=== PATIENT | female | born 1950 | race Caucasian/White ===

== ENCOUNTER 2020-10-26 07:37 | Outpatient (CLI) | payer MEDICARE, SELFPAY ==
--- NOTE | ~2020-10-26 | MM_ITS ---
EXAMINATION: MM screening dilan BI w brigitte HISTORY: Screening TECHNIQUE: Craniocaudal and mediolateral oblique 3-D tomosynthesis images were obtained and synthetic 2-D images were generated. CAD analysis was submitted and interpreted. COMPARISON: 01/08/2017 BREAST PARENCHYMAL COMPOSITION: There are scattered areas of fibroglandular density. FINDINGS: Focal architectural distortion subareolar location of the right breast on CC view. This is not appreciated on MLO view.. Focal asymmetry in the left subareolar location is also unchanged. Ther e are scattered benign calcifications. No new masses, calcifications or architectural distortion are identified. IMPRESSION: 1. Focal architectural distortion subareolar location of the right breast, definitely seen on CC view only. 2. Additional mammographic views and possible breast ultrasound are recommended. BI-RADS Category 0: Incomplete: Needs additional imaging evaluation. Reviewed, dictated and finalized at location A. IMPRESSION: 1. Focal architectural distortion subareolar location of the right breast, defi nitely seen on CC view only. 2. Additional mammographic views and possible breast ultrasound are recommended . BI-RADS Category 0: Incomplete: Needs additional imaging evaluation.
== END 2020-10-26 07:38 | disposition home or self-care (01) ==
LOC: CHSIMG 07:40
PROVIDERS: PCP Family Medicine; Visit Provider Family Medicine
DX: Z12.31 Encounter for screening mammogram for malignant neoplasm of breast (principal)
CPT/HCPCS: 77063; 77067

== ENCOUNTER 2020-11-06 09:36 | Outpatient (CLI) | payer MEDICARE, SELFPAY ==
--- NOTE | ~2020-11-06 | MMUS_ITS ---
EXAMINATION: MM diagnostic dilan RT w brigitte, US breast RT limited HISTORY: Follow-up architectural distortion of the right breast TECHNIQUE: Additional 3-D tomosynthesis images of the right breast were performed and synthetic 2-D i mages were generated. CAD analysis was submitted and interpreted. High resolution Limited right breas t ultrasound was performed. COMPARISON: Comparison to multiple prior studies sequentially, with oldest reviewed study dated 12/12. BREAST PARENCHYMAL COMPOSITION: Breast composed of scattered areas of fibroglandular density. FINDINGS: MAMMOGRAPHIC FINDINGS: There is a spiculated mass in the upper central aspect of the right breast anteriorly. There are scat tered benign-appearing calcifications. ULTRASOUND: Limited right breast ultrasound: At 3:00, 5 cm from the nipple, there is an oval circumscribed hypoec hoic mass with posterior shadowing measuring 5 mm, likely benign. At 2:00, 5 cm from the nipple, ther e is a 4 mm cyst. At 1:00, 5 cm from the nipple, there is an irregular shaped hypoechoic mass measuri ng 9 mm corresponding to the spiculated mass seen on mammography. There is posterior shadowing with n o significant internal vascularity. There is an adjacent calcification with posterior shadowing. At 1 2:00, 7 cm from the nipple, there is a 3 mm cyst. IMPRESSION: 1. Irregular shaped 9 mm mass at 1:00, 5 cm from the nipple corresponding to the mammographic finding . 2. Ultrasound-guided right breast biopsy recommended. BI-RADS category 5, highly suggestive of malignancy. Reviewed, dictated and finalized at location A. IMPRESSION: 1. Irregular shaped 9 mm mass at 1:00, 5 cm from the nipple corresponding to th e mammographic finding. 2. Ultrasound-guided right breast biopsy recommended. BI-RADS category 5, highly suggestive of malignancy.
== END 2020-11-06 09:37 | disposition home or self-care (01) ==
PROVIDERS: PCP Family Medicine; Visit Provider Family Medicine
DX: R92.8 Other abnormal and inconclusive findings on diagnostic imaging of breast (principal)
CPT/HCPCS: 76642; 77061; 77065; G0279

== ENCOUNTER 2020-11-28 12:26 | Outpatient (CLI) | payer MEDICARE, SELFPAY ==
--- NOTE | ~2020-11-28 | MM_ITS ---
EXAMINATION: MM post biopsy diagnostic RT HISTORY: Post ultrasound-guided biopsy mammogram TECHNIQUE: ML and cc views following ultrasound-guided biopsy at 1:00 breast mass . COMPARISON: None FINDINGS: A ribbon biopsy marker is present adjacent to a spiculated mass in the upper inner quadrant of the right breast approximately 1:00. IMPRESSION: Ultrasound-guided biopsy marker at spiculated mass at 1:00 BI-RADS category 4, suspicious findings. Reviewed, dictated and finalized at location A.
--- NOTE | ~2020-11-28 | US_ITS ---
EXAMINATION: US GUIDED NEEDLE BIOPSY DATE: 11/28/2020 14:15 CDT INDICATION: Irregular spiculated shadowing breast mass at 1:00 5 cm from nipple TECHNIQUE AND FINDINGS: The risks and potential benefits of the procedure were discussed with the patient, and written inform ed consent was obtained. Timeout procedure was performed. After sterile preparation of the right theo st, 1% lidocaine was utilized for local anesthesia. A 14G spring-loaded biopsy gun needle was advanced to the edge of the region of interest from a media l approach utilizing sonographic guidance. A total of three tissue core samples were obtained throug h the lesion. An Inrad tissue marker clip was then placed at the biopsy site. Hemostasis was achieve d. A sterile bandage was applied. The patient tolerated procedure well and there was no evidence of immediate complication. The patien t was given verbal instructions prior to departing from the department. A two view mammogram was perf ormed to document tissue marker clip placement. The tissue samples were submitted to surgical patholo gy for histologic analysis. IMPRESSION: 1. Successful ultrasound guided biopsy of right 1:00 breast mass with biopsy marker placement. Thompson ny refer to pathology report for histologic analysis. Reviewed, dictated and finalized at Location A. Reviewed, dictated and finalized at location A. IMPRESSION: 1. Successful ultrasound guided biopsy of right 1:00 breast mass with biopsy m arker placement. Please refer to pathology report for histologic analysis.
== END 2020-11-28 12:27 | disposition home or self-care (01) ==
LOC: CHSIMG 12:27
PROVIDERS: PCP Family Medicine; Visit Provider Family Medicine
DX: C50.211 Malignant neoplasm of upper-inner quadrant of right female breast (principal); Z17.0 Estrogen receptor positive status [ER+]
CPT/HCPCS: 19083; 77065; 88305; 88342; A4648

== ENCOUNTER 2020-12-25 07:16 | Outpatient (CLI) | payer MEDICARE, SELFPAY ==
--- NOTE | ~2020-12-25 | MR_ITS ---
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 There is a 1.4 x 0.9 x 1.2 cm irre gular mass with irregular margins in the anterior third of the upper inner quadrant of the breast at the 1:00 location approximately 6.5 cm from the nipple corresponding to the biopsy-proven cancer. The mass demonstrates rapid initial enhancement with plateau and the delayed phase. No pathologically en larged axillary or internal mammary lymph nodes are identified. LEFT BREAST: There is minimal background parenchymal enhancement. No abnormal enhancement is present after contrast administration. No pathologically enlarged axillary or internal mammary lymph nodes ar e identified. IMPRESSION: 1. Biopsy-proven right breast cancer without additional mass identified. BI-RADS category 6, known biopsy-proven malignancy. Reviewed, dictated and finalized at location A. [employer]
[2020-12-25 09:04] LABS: Estimated Glomerular Filt Rate 55
== END 2020-12-25 07:17 | disposition home or self-care (01) ==
PROVIDERS: PCP Family Medicine; Visit Provider Family Medicine
DX: C50.911 Malignant neoplasm of unspecified site of right female breast (principal)
CPT/HCPCS: 77049; A9577; C8908

== ENCOUNTER 2021-02-27 10:02 | Outpatient (CLI) | payer MEDICARE, SELFPAY ==
--- NOTE | ~2021-02-27 | DEXA_ITS ---
Bone Density Report Name: NE HERNANDEZ Age: 70 Sex: Female Ethnicity: White Date of : 1950 Indication: postmenopausal; screening for osteoporosis; height loss; cancer; hysterectomy; Referring Provider: FAISAL HOLDEN Study: Bone densitometry was performed. Exam Date: February 27, 2021 Accession number: [id number] Bone Density: Region BMD T-score Z-score Classification AP Spine(L1-L4) 1.127 0.7 2.8 Normal Femoral Neck (Left) 0.632 -2.0 -0.2 Osteopenia Total Hip (Left) 0.859 -0.7 0.8 Normal Femoral Neck (Right) 0.691 -1.4 0.3 Osteopenia Total Hip (Right) 0.828 -0.9 0.5 Normal Femoral Neck Mean 0.662 -1.7 0.1 Osteopenia Total Hip Mean 0.843 -0.8 0.6 Normal World Health Organization criteria for BMD impression classify patients as: Normal (T-score at or above -1.0), Osteopenia (T-score between -1.0 and -2.5), or Osteoporosis (T-score at or below -2.5). 10-year Fracture Risk(1): Major Osteoporotic Fracture 9.5% Hip Fracture 1.5% Reported Risk Factors: [place] (), Neck BMD=0.632, BMI=44.9 (1) FRAX(R) Version 3.08. Fracture probability calculated for an untreated patient. Fracture probability may be lower if the patient has received treatment. Clinical Information Provided by Patient: Has the following medical conditions: Cancer, Hysterectomy Patient maximum height was 70 Menopause Age: 61 No regular weight bearing exercise Drinks caffeinated beverages Onset of menses at age 12 Number of children 6 Impression: The patient has low bone mass, based on the Left Femoral Neck T-score. Discussion: BONE DENSITY IS LOW AT ONE OR MORE SKELETAL SITES. This patient's lowest T-score is low at one or more skeletal sites. It meets the World Health Organization's (WHO) criteria for ?low bone mass? (T-score between -1.0 and -2.5). The patient's 10-year risk of fracture as calculated by FRAX is less than the threshold where pharmacological therapy is recommended by the National Osteoporosis Foundation (NOF). However, all treatment decisions require clinical judgment and consideration of individual patient factors, including patient preferences, comorbidities, previous drug use, risk factors not captured in the FRAX model (e.g., frailty, falls, vitamin D deficiency, increased bone turnover, interval significant decline in bone density) and possible under or overestimation of fracture risk by FRAX. The patient should follow a healthful lifestyle (good nutrition with adequate calcium and vitamin D, and appropriate weight-bearing exercise). Follow-Up: Consider repeating this study in 2 to 3 years to reassess this patient's status, or sooner if there is some new clinical indication. Reported by: Dr. Rell Rader on 02/27/2021 10:46:00 AM.
== END 2021-02-27 10:03 | disposition home or self-care (01) ==
LOC: CHSIMG 10:03
PROVIDERS: PCP Family Medicine; Visit Provider Internal Medicine Hematology & Oncology
DX: Z78.0 Asymptomatic menopausal state (principal)
CPT/HCPCS: 77080

== ENCOUNTER 2021-03-15 11:07 | Outpatient (CLI) | payer MEDICARE, SELFPAY ==
[2021-03-15 12:34] LABS: Cholesterol 241 mg/dL (0-200); HDL Direct 38 mg/dL (40-60); LDL Cholesterol Calculated 164 mg/dL (<130); Triglycerides 195 mg/dL (0-150)
== END 2021-03-15 11:08 | disposition home or self-care (01) ==
PROVIDERS: Visit Provider Internal Medicine Hematology & Oncology
DX: C50.211 Malignant neoplasm of upper-inner quadrant of right female breast (principal); Z13.6 Encounter for screening for cardiovascular disorders
CPT/HCPCS: 36415; 80061

== ENCOUNTER 2021-06-17 09:46 | Emergency (ER) | payer MEDICARE, SELFPAY ==
[2021-06-17 10:00] VITALS: BP 109/91; PULSE 91; RESP 16; TEMP 36.1; O2SAT 100
[2021-06-17 10:11] LABS: Glucose Point of Care 423 mg/dl (65-105)
--- NOTE | 2021-06-17 10:12 | ED.FEMALEGU ---
HPI - Female Genitourinary General Chief complaint: Urogenital-Female Stated complaint: groin injury/hip pain/blood sugar up/UTI Time Seen by Provider: 06/17/21 10:12 Source: patient Mode of arrival: ambulatory Limitations: no limitations History of Present Illness HPI Narrative: Patient states that she had flu symptoms 3-4 days ago. She has had off and on body aches and cough. She states that seems to have gotten better until yesterday when she was having increased frequency of urinations. Says her sugars have been elevated. then she said her urination seemed to slow down she noticed some pink urine yesterday, today urinations have been normal. MD elicited complaint: dysuria Onset (ago): day(s) (3) Severity: moderate Vaginal discharge: none Urinary symptoms: Urgency, Frequency and Hematuria (pink yesterday) Exacerbating factors: urination Relieving factors: none Associated symptoms: fever (101.8 Yesterday) and groin pain Treatment prior to arrival: none Sexual activity: No Related Data Home Medications Medication Instructions Recorded Confirmed glipizide 20 mg PO DAILY 06/17/21 06/17/21 hydrochlorothiazide 25 mg PO DAILY 06/17/21 06/17/21 lisinopril 20 mg PO DAILY 06/17/21 06/17/21 metformin 1,000 mg PO BID 06/17/21 06/17/21 pioglitazone 7.5 mg PO DAILY 06/17/21 06/17/21 tamoxifen 20 mg PO DAILY 06/17/21 06/17/21 Allergies Allergy/AdvReac Type Severity Reaction Status Date / Time No Known Allergies Allergy Verified 06/17/21 10:06 Review of Systems Review of Systems: patient also states that she felt a pop in her hip a few days ago. Now she has some soreness on her inner thigh. She thinks it is due to the problem with her hip that she has had for years but just mentioned that because she has pain in her right inner thigh along the muscle. All systems reviewed & are unremarkable except as noted in HPI and below PMFSH Past Medical History Medical History (Updated 06/17/21 @ 11:22 by Adin Fox MD) Breast cancer Hypertension Type 2 diabetes mellitus Surgical History Surgical History (Updated 06/17/21 @ 10:37 by Adin Fox MD) History of lumpectomy of right breast Exam Const: General: healthy appearing, no acute distress and alert Nutritional Appearance: well nourished and obese morbidly obese Orientation/consciousness: patient oriented x3 HENMT: Head: normal to inspection Ears: external ears normal Mouth: Yes moist mucous membranes Eyes: Conjunctivae: conjunctivae normal Pupils: Equal, round and reactive pupils present EOM: EOMs intact bilaterally Neck: Neck: normal visual inspection Resp: Effort & Inspection: normal respiratory effort Auscultation: clear to auscultation bilaterally Cardio: Rate: regular rate Rhythm: regular rhythm GI: GI Palp: Yes Soft to palpation and No Tenderness to palpation present (GI) Auscultation: normal bowel sounds Back/Spine/Pelvis: Cervical Spine: cervical ROM normal Thoracic/Lumbar Spine: thoraco-lumbar ROM normal Skin: General skin exam: normal color Rashes: no rashes Neuro: General: patient oriented x3, moves all extremities, no focal motor deficits and CN's II-XI intact bilaterally Speech: normal speech Gait exam (Neuro): Normal gait present Extrem: General: normal to inspection and no clubbing, cyanosis or edema Psych: Mental Status: mental status grossly normal Affect: normal affect Attitude: cooperative Thought content: Yes Normal thought content present Judgement: Good judgement present (Psych) Course Vital Signs Vital signs: Vital Signs Temperature 36.1 C L 06/17/21 10:00 Pulse Rate 91 06/17/21 10:00 Respiratory Rate 16 06/17/21 10:00 Blood Pressure 109/91 H 06/17/21 10:00 Pulse Oximetry 100 06/17/21 10:00 Temperature 36.4 C L 06/17/21 11:43 Pulse Rate 87 06/17/21 11:43 Respiratory Rate 16 06/17/21 11:43 Blood Pressure 101/50 L 06/17/21 11:43 Pulse Oximetry 97 06/17/21 11:43 MDM
[2021-06-17 10:56] LABS: Add Urine Microscopic? YES; Appearance Urine Cloudy (Clear); Basophils Absolute Auto 0.02 K/mm3 (0.00-0.10); Basophils Percent Auto 0.2 % (0.0-1.0); Bilirubin Urine Negative (Negative); Blood Urine 1+ (Negative); Color Urine Yellow (Yellow); Glucose Urine UA 3+ (Negative); Hematocrit 32.6 % (35.0-42.0); Immature Granulocyte Absolute 0.16 K/mm3 (0.00-0.00); Immature Granulocyte Percent A 1.4 % (0.0-0.0); Ketones Urine 1+ (Negative); Leukocyte Esterase Ur Negative LEU/UL (Negative); Lymphocytes Absolute Auto 0.16 K/mm3 (1.10-4.50); Lymphocytes Percent Auto 1.4 % (18.0-42.0); Mean Corpuscular HGB Conc 33.7 g/dL (32.0-36.0); Mean Corpuscular Hemoglobin 29.1 pg (27.0-31.0); Mean Corpuscular Volume 86.2 fL (78.0-102.0); Mean Platelet Volume 11.8 fl (9.2-11.8); Monocytes Absolute Auto 0.64 K/mm3 (0.10-0.90); Monocytes Percent Auto 5.8 % (2.0-11.0); Neutrophils Absolute Auto 10.1 K/mm3 (1.7-7.2); Neutrophils Percent Auto 91.2 % (50.0-70.0); Nitrate Urine Negative (Negative); Platelet Count Result 146 K/mm3 (150-420); Protein Urine Trace (Negative); Red Blood Count 3.78 M/mm3 (4.20-5.40); Red Cell Distribution Width 12.3 % (11.6-14.4); Urobilinogen Urine 0.2 mg/dL (0.2-1.0); White Blood Count 11.1 K/mm3 (4.8-10.8)
[2021-06-17 11:01] LABS: Bacteria Urine 3+ /hpf; RBC Urine 0-2 /hpf (0-2); Squamous Epithelial Cell Urine Few /hpf (Few)
[2021-06-17 11:09] LABS: Alanine Aminotransferase 12 U/L (14-59); Albumin Level 2.3 g/dL (3.4-5.0); Alkaline Phosphatase 78 U/L (46-116); Anion Gap 10 mmol/L (8-16); Aspartate Amino Transferase 12 U/L (15-37); Bilirubin,Total 1.5 mg/dL (0.00-1.00); Blood Urea Nitrogen 53 mg/dL (7-18); Calcium 8.8 mg/dL (8.5-10.1); Carbon Dioxide 25 mmol/L (21-32); Chloride 93 mmol/L (98-108); Estimated Glomerular Filt Rate 24; Magnesium 1.9 mg/dL (1.8-2.4); Osmolality Calculated 298 mOsm/kg (285-295); Potassium 4.1 mmol/L (3.5-5.1); Sodium 128 mmol/L (136-145); Total Protein 6.8 g/dL (6.4-8.2)
[2021-06-17 11:10] LABS: Glucose 424 mg/dL (70-99)
[2021-06-17 11:11] LABS: Lactic Acid Reflex 1.6 mmol/L (0.4-2.0)
[2021-06-17] MEDS: INSULIN HUMAN REGULAR (*BKC) 100 UNITS/ML 10 UNITS SUB-Q (11:33)
[2021-06-17 11:43] VITALS: BP 101/50; PULSE 87; RESP 16; TEMP 36.4; O2SAT 97
== END 2021-06-17 11:47 | disposition home or self-care (01) ==
PROVIDERS: Emergency Provider Emergency Medicine; PCP Internal Medicine
DX: N30.00 Acute cystitis without hematuria (principal); I10 Essential (primary) hypertension; E11.9 Type 2 diabetes mellitus without complications; Z85.3 Personal history of malignant neoplasm of breast
CPT/HCPCS: 36415; 80053; 81001; 82948; 83605; 83735; 85025; 87086; 99283; J1815

== ENCOUNTER 2021-06-20 12:50 | Emergency (ER) | payer MEDICARE, SELFPAY ==
--- NOTE | ~2021-06-20 | CT_ITS ---
EXAMINATION: CT abdomen pelvis wo con DATE: 06/20/2021 13:41 INDICATION: Generalized weakness, constipation TECHNIQUE: Computed tomography (CT) of the abdomen and pelvis was performed without intravenous contr ast. The dose-length product (DLP) was 1802.64 mGy-cm. Automated exposure control and iterative recon struction technique were employed. COMPARISON: None FINDINGS: The lung bases are clear. The heart size is normal. Multiple liver cysts are present which measure up to 2 cm in the right hepatic lobe. The spleen, pancreas, gallbladder, and adrenal glands a re normal. The kidneys are unremarkable. No pathologically enlarged abdominal or pelvic lymph nodes a re identified. There is no free intraperitoneal gas or evidence of bowel obstruction. There is extens lashonda soft tissue gas in the perineum, the right buttock, the right labia majora, and anteriorly in the lower abdominal wall. There is a more focal abscess abutting or involving the right gracilis muscle. There is severe lumbar spondylosis. IMPRESSION: 1. Findings consistent with Samantha gangrene. Emergent surgical evaluation is recommended. These fin dings and recommendations were discussed with Dr. Mauricio Diamond MD at 1355 hours on 06/20/2021. Reviewed, dictated and finalized at location A. IMPRESSION: 1. Findings consistent with Samantha gangrene. Emergent surgical evaluation is recommended. These findings and recommendations were discussed with Dr. Mauricio Diamond MD at 1355 hours on 06/20/2021.
--- NOTE | ~2021-06-20 | XR_ITS ---
EXAMINATION: XR chest 1V portable INDICATION: Weakness TECHNIQUE: Portable AP chest at 1344 hours COMPARISON: None available FINDINGS: The lungs are free of acute opacities. There is no pleural effusion or pneumothorax. The ca rdiomediastinal silhouette is normal. 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 IMPRESSION: 1. No acute cardiopulmonary abnormality. Reviewed, dictated and finalized at location A.
[2021-06-20 13:00] VITALS: BP 95/55; PULSE 20; RESP 20; TEMP 36.3; O2SAT 100
[2021-06-20 13:15] LABS: Glucose Point of Care > 450 mg/dl (65-105)
[2021-06-20] MEDS: SODIUM CHLORIDE 0.9% IV 1,000 ML 999 ML IV CONT ×3 (13:20→15:18)
--- NOTE | 2021-06-20 13:58 | ECG_ITS ---
Measurements Intervals [place] Rate: 63 P: 75 GA: 197 QRS: -11 QRSD: 101 T: 20 QT: 409 QTc: 422 Interpretive Statements SINUS RHYTHM BASELINE ARTIFACT- I, II, AVR, AVL, AVF, V1-V2 NORMAL ECG Electronically Signed On 06-20-2021 14:32:16 CDT by Steven Mccall D.O.
[2021-06-20] MEDS: KETOROLAC 30 MG/ML VIAL (*BKC) IV PUSH (14:00)
--- NOTE | 2021-06-20 14:07 | ED.WEAKNESS ---
HPI - Weakness General Chief complaint: Weakness Stated complaint: PAIN POSSIBLE BLADDER INFECTION Source: patient and family Mode of arrival: ambulatory History of Present Illness HPI Narrative: this is a 70-year-old female that was here on Thursday treated for UTI was complaining of groin discomfort and sent home with some Bactrim, the patient has a history of diabetes hypertension has felt more weakness since Thursday and continues to complain of pelvic perineal and groin and lower abdominal discomfort. The patient presented with a lower blood pressure, she has not been able to keep things down has not been able to drink enough fluids. Patient currently afebrile has a history of diabetes and currently her blood sugars were greater than 450. There is an area of abscess in the perineal area with currently no drainage there is redness and quite a bit of tenderness. spoke to analysis lead and plastics at [facility] patient received Zosyn / vancomycin /clindamycin, patient was accepted for transfer. Complaint: generalized weakness Onset (ago): day(s) Duration: constant Related Data Home Medications Medication Instructions Recorded Confirmed glipizide 20 mg PO DAILY 06/17/21 06/20/21 hydrochlorothiazide 25 mg PO DAILY 06/17/21 06/20/21 lisinopril 20 mg PO DAILY 06/17/21 06/20/21 metformin 1,000 mg PO BID 06/17/21 06/20/21 pioglitazone 7.5 mg PO DAILY 06/17/21 06/20/21 tamoxifen 20 mg PO DAILY 06/17/21 06/20/21 Allergies Allergy/AdvReac Type Severity Reaction Status Date / Time No Known Allergies Allergy Verified 06/20/21 13:27 Review of Systems Review of Systems: All systems reviewed & are unremarkable except as noted in HPI and below [facility] Past Medical History Medical History Breast cancer Hypertension Type 2 diabetes mellitus Surgical History Surgical History History of lumpectomy of right breast Exam Const: General: no acute distress Orientation/consciousness: patient oriented x3 HENMT: Head: normal to inspection Eyes: Conjunctivae: conjunctivae normal Pupils: Equal, round and reactive pupils present Neck: Neck: normal visual inspection, no lymphadenopathy and no meningeal signs Chest: Chest palpation & inspection: normal inspection of the chest Resp: Effort & Inspection: normal respiratory effort Cardio: Rate: regular rate Rhythm: regular rhythm GI: GI Palp: Yes Tenderness to palpation present (GI) Other: Suprapubic area Skin: Other: abscess the redness erythema in the perineal area Neuro: General: patient oriented x3 Extrem: General: normal to inspection and no pedal edema Psych: Mental Status: mental status grossly normal Affect: normal affect Course Course Emergency Course: IV fluids started pressure has improved currently 107 systolic, patient received IV Toradol and a reassessment of her pain level has improved she is currently afebrile 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 Vital Signs Vital signs: Vital Signs Temperature 36.3 C L 06/20/21 13:00 Pulse Rate 20 L 06/20/21 13:00 Respiratory Rate 20 06/20/21 13:00 Blood Pressure 95/55 L 06/20/21 13:00 Pulse Oximetry 100 06/20/21 13:00 Temperature 36.3 C L 06/20/21 13:00 Pulse Rate 20 L 06/20/21 13:00 Respiratory Rate 20 06/20/21 13:00 Blood Pressure 95/55 L 06/20/21 13:00 Pulse Oximetry 100 06/20/21 13:00 MDM - Weakness Lab Data Result diagrams: 06/20/21 14:11 06/20/21 14:11 Labs: Lab Results 06/20/21 06/20/21 06/20/21 Range/Units 13:06 14:11 14:11 WBC 15.6 H (4.8-10.8) K/mm3 RBC 3.38 L (4.20-5.40) M/mm3 Hgb 9.7 L
[2021-06-20 14:18] LABS: Hemoglobin 9.7 g/dL (11.7-13.8); Mean Corpuscular HGB Conc 33.4 g/dL (32.0-36.0); Mean Corpuscular Hemoglobin 28.7 pg (27.0-31.0); Mean Corpuscular Volume 85.8 fL (78.0-102.0); Mean Platelet Volume 11.6 fl (9.2-11.8); Platelet Count Result 176 K/mm3 (150-420); Red Blood Count 3.38 M/mm3 (4.20-5.40); Red Cell Distribution Width 12.6 % (11.6-14.4); White Blood Count 15.6 K/mm3 (4.8-10.8)
[2021-06-20 14:31] LABS: INR 1.1; Partial Thromboplastin Time 24.2 SEC (23.90-30.70); Prothrombin Time 11.2 Seconds (9.50-12.10)
[2021-06-20 14:32] LABS: Band Neutrophils Percent 0 % (0-6); Lymphocytes Absolute Manual 0.31 K/mm3 (1.1-4.5); Lymphocytes Percent Manual 2 % (18-44); Monocytes Absolute Manual 0.62 K/mm3 (0.1-0.90); Monocytes Percent Manual 4 % (3-9); Neutrophils Absolute Manual 14.66 K/mm3 (1.7-7.2); Neutrophils Percent Manual 94 % (46-73); Platelet Estimate Adequate (Adequate); Total Cells Counted 100
[2021-06-20 14:38] LABS: Lactic Acid Reflex 2.4 mmol/L (0.4-2.0)
[2021-06-20 14:48] LABS: Alanine Aminotransferase 6 U/L (14-59); Albumin Level 1.8 g/dL (3.4-5.0); Alkaline Phosphatase 94 U/L (46-116); Anion Gap 13 mmol/L (8-16); Aspartate Amino Transferase 14 U/L (15-37); Bilirubin,Total 0.9 mg/dL (0.00-1.00); Blood Urea Nitrogen 60 mg/dL (7-18); Calcium 8.2 mg/dL (8.5-10.1); Carbon Dioxide 21 mmol/L (21-32); Chloride 90 mmol/L (98-108); Estimated CRCL calculation 26 ml/min; Estimated Glomerular Filt Rate 19; Osmolality Calculated 296 mOsm/kg (285-295); Potassium 3.6 mmol/L (3.5-5.1); Sodium 124 mmol/L (136-145); Total Protein 6.1 g/dL (6.4-8.2)
[2021-06-20 14:50] LABS: CRP > 10.6 mg/dL (0.0-0.9); Glucose 487 mg/dL (70-99)
[2021-06-20 14:52] LABS: NT Pro B Type Natriuretic Pept 1839 pg/mL (0-125)
[2021-06-20 15:00] VITALS: PULSE 79
[2021-06-20 15:39] LABS: Add Urine Microscopic? YES; Appearance Urine Clear (Clear); Bilirubin Urine Negative (Negative); Blood Urine Negative (Negative); Color Urine Yellow (Yellow); Glucose Urine UA 3+ (Negative); Ketones Urine Negative (Negative); Leukocyte Esterase Ur Negative (Negative); Nitrate Urine Negative (Negative); Protein Urine Negative (Negative); Urobilinogen Urine 0.2 mg/dL (0.2-1.0)
[2021-06-20 15:43] LABS: Bacteria Urine Trace /hpf; RBC Urine None seen /hpf (0-2); Renal Epithelial Cells Urine Few /hpf; Squamous Epithelial Cell Urine Few /hpf (Few); WBC Urine None seen /hpf (0-3)
--- NOTE | 2021-06-20 16:02 | PC.NURSE ---
[facility] called et no icu beds avaialble.
[2021-06-20 16:35] LABS: Glucose Point of Care > 450 mg/dl (65-105)
[2021-06-20 16:45] LABS: SARS-CoV-2 Ag Negative (Negative)
[2021-06-20 17:00] VITALS: PULSE 89
[2021-06-20] MEDS: INSULIN HUMAN REGULAR (*BKC) 100 UNITS/ML 10 UNITS IV PUSH (17:11)
[2021-06-20 17:12] LABS: Reflex Lactic Acid Yes or No Add Lactic
[2021-06-20 17:47] LABS: Lactic Acid 1.2 mmol/L (0.4-2.0)
[2021-06-20 17:56] LABS: Creatine Kinase 71 U/L (26-192)
[2021-06-20] MEDS: CLINDAMYCIN 600 MG/D5W 50 ML 600 MG/50 ML PIGGYBACK 100 MG IVPB (18:51)
[2021-06-20 18:59] VITALS: BP 116/54; PULSE 74; RESP 16; TEMP 36.3; O2SAT 96
== END 2021-06-20 19:05 | disposition short-term general hospital (02) ==
PROVIDERS: Emergency Provider Emergency Medicine
DX: N76.89 Other specified inflammation of vagina and vulva (principal); Z20.822 Contact with and (suspected) exposure to COVID-19; I10 Essential (primary) hypertension; E11.9 Type 2 diabetes mellitus without complications; Z85.3 Personal history of malignant neoplasm of breast
CPT/HCPCS: 36415; 71045; 74176; 80053; 81001; 82550; 82948; 83605; 83880; 84484; 85025; 85610; 85730; 86140; 87040; 87426; 93005; 96361; 96365; 96367; 96375; 99285; C9803; J1815; J1885; J2543; J3370; J7030

== ENCOUNTER 2021-07-16 16:06 | Emergency (ER) | payer MEDICARE, SELFPAY ==
[2021-07-16] VITALS (42 sets, daily range): BP systolic 75–172; BP diastolic 47–87; PULSE 73–82; RESP 18; TEMP 35.8; O2SAT 92–100
--- NOTE | ~2021-07-16 | CT_ITS ---
EXAMINATION: CT abdomen pelvis wo con DATE: 07/16/2021 18:27 INDICATION: post Samantha's gangrene sugery, hypotension. TECHNIQUE: Computed tomography (CT) of the abdomen and pelvis was performed without intravenous contr ast. Automated exposure control and iterative reconstruction technique were employed. The dose-length product was 1462.90 mGy-cm. COMPARISON: 06/20/2021. FINDINGS: Lower thorax: Bibasilar scar/atelectasis. Coronary artery calcification. Liver: Multiple hepatic cysts. Biliary/Gallbladder: Gallbladder is normal. No bile duct dilation. Pancreas: No mass or duct dilation. Spleen: Normal. Adrenals:No mass. Kidneys: No mass, stone, or hydronephrosis. GI tract: No small or large bowel dilation. Normal appendix. Scattered diverticuli without diverticul itis. Mesentery/Peritoneum: No ascites, mass, or free air. Retroperitoneum: No mass. Atherosclerotic calcifications. Pelvis: The bladder is drained by a Villeda catheter, otherwise the pelvic organs are within normal farooq its. Soft Tissues: Status post peroneal debridement, incompletely imaged. Multiple surgical drains are pre sent, incompletely imaged. 3.3 x 3.1 x 4.3 cm gas collection in the medial aspect of the left inguina l canal deep to the inferior portion of the left rectus muscle with a suggestion of surrounding rind of soft tissue density, which does not appear to be drained by the adjacent drainage catheters. Bones: No acute osseous finding. IMPRESSION: New gas collection in the medial aspect of left inguinal canal, deep to the inferior portion of left rectus muscle may represent a developing abscess, which does not appear to be drained by the adjacent catheters. The inferior extent of the peroneal debridement was not included in the [id number]. Reviewed, dictated and finalized at location K. IMPRESSION: New gas collection in the medial aspect of left inguinal canal, deep to the inf erior portion of left rectus muscle may represent a developing abscess, which d oes not appear to be drained by the adjacent catheters. The inferior extent of the peroneal debridement was not included in the [id number].
--- NOTE | ~2021-07-16 | XR_ITS ---
EXAMINATION: XR chest 1V portable Exam Date/Time: 07/16/2021 17:15 CDT HISTORY: chest pain with weakness Comparison: 06/20/2021. RESULT: Lines, tubes, and devices: None. Lungs and pleura: Clear. Cardiomediastinal silhouette: Stable cardiomediastinal silhouette. Other: No acute osseous or upper abdominal finding. IMPRESSION: No acute cardiopulmonary process. Reviewed, dictated and finalized at location K.
--- NOTE | 2021-07-16 16:53 | ECG_ITS ---
Measurements Intervals [place] Rate: 74 P: 62 WI: 183 QRS: -15 QRSD: 87 T: 16 QT: 368 QTc: 408 Interpretive Statements SINUS RHYTHM NORMAL ECG COMPARED TO ECG 06/20/2021 13:58:12 NO SIGNIFICANT CHANGES Electronically Signed On 07-17-2021 7:28:37 CDT by Mauricio Zaldivar M.D.
[2021-07-16 17:15] LABS: Basophils Absolute Auto 0.01 K/mm3 (0.00-0.10); Basophils Percent Auto 0.2 % (0.0-1.0); Eosinophils Percent Auto 1.9 % (1.0-6.0); Hematocrit 29.1 % (35.0-42.0); Hemoglobin 9.1 g/dL (11.7-13.8); Immature Granulocyte Absolute 0.06 K/mm3 (0.00-0.00); Immature Granulocyte Percent A 1.1 % (0.0-0.0); Lymphocytes Absolute Auto 0.72 K/mm3 (1.10-4.50); Lymphocytes Percent Auto 13.4 % (18.0-42.0); Mean Corpuscular HGB Conc 31.3 g/dL (32.0-36.0); Mean Corpuscular Hemoglobin 27.7 pg (27.0-31.0); Mean Corpuscular Volume 88.7 fL (78.0-102.0); Monocytes Absolute Auto 0.46 K/mm3 (0.10-0.90); Monocytes Percent Auto 8.5 % (2.0-11.0); Neutrophils Percent Auto 74.9 % (50.0-70.0); Platelet Count Result 188 K/mm3 (150-420); Red Blood Count 3.28 M/mm3 (4.20-5.40); White Blood Count 5.4 K/mm3 (4.8-10.8)
[2021-07-16] MEDS: SODIUM CHLORIDE 0.9% IV 1,000 ML 999 ML IV CONT (17:28)
[2021-07-16 17:30] LABS: Alanine Aminotransferase 13 U/L (14-59); Alkaline Phosphatase 59 U/L (46-116); Anion Gap 7 mmol/L (8-16); Aspartate Amino Transferase 14 U/L (15-37); Bilirubin,Total 1.1 mg/dL (0.00-1.00); Blood Urea Nitrogen 14 mg/dL (7-18); Calcium 8.5 mg/dL (8.5-10.1); Carbon Dioxide 27 mmol/L (21-32); Chloride 99 mmol/L (98-108); Estimated CRCL calculation 60 ml/min; Estimated Glomerular Filt Rate 53; Glucose 316 mg/dL (70-99); Osmolality Calculated 288 mOsm/kg (285-295); Potassium 3.5 mmol/L (3.5-5.1); Sodium 133 mmol/L (136-145); Total Protein 5.8 g/dL (6.4-8.2)
[2021-07-16 17:35] LABS: Lactic Acid Reflex 0.9 mmol/L (0.4-2.0)
--- NOTE | 2021-07-16 18:21 | PC.NURSE ---
Pt not complaining of pain at this time and BP remains low. Will hold morphine at this time.
--- NOTE | 2021-07-16 19:05 | PC.NURSE ---
Pt arrived with sawyer catheter in place, states that it was inserted 4 weeks ago. Lots of sediment noted in tubing. Catheter removed and replaced with a new sawyer catheter. Pt also states that her wound vac came disconnected at the PCP's office and needs to be replaced by a wet to dry dressing within two hours. RN's remove wound vac, but are not comfortable removing wound packing foam as there is an unknown tube coiled around the foam. RN asked pt's , who does dressing changes at home what the tube is and he does not know either. Sterile gauze placed over wound until decision is made about how best to proceed with wound care. ERP aware.
[2021-07-16 19:06] LABS: Add Urine Microscopic? YES; Appearance Urine Cloudy (Clear); Bilirubin Urine 1+ (Negative); Blood Urine 1+ (Negative); Color Urine Yellow (Yellow); Glucose Urine UA 3+ (Negative); Ketones Urine Trace (Negative); Leukocyte Esterase Ur 1+ (Negative); Nitrate Urine Negative (Negative); Protein Urine Negative (Negative); Specific Grav Ur >= 1.030 (1.010-1.020); Urobilinogen Urine 0.2 mg/dL (0.2-1.0); pH Urine 5.5 (5.0-8.0)
[2021-07-16 19:12] LABS: Bacteria Urine 1+ /hpf; Budding Yeast Urine Present /hpf; RBC Urine 21-50 /hpf (0-2); Squamous Epithelial Cell Urine Few /hpf (Few); WBC Urine 21-30 /hpf (0-3)
[2021-07-16] MEDS: ONDANSETRON INJ 4 MG/2 ML VIAL IV PUSH (19:26)
--- NOTE | 2021-07-16 19:55 | PC.NURSE ---
pt again reminded to keep arm straight for fluid admin
--- NOTE | 2021-07-16 20:34 | ED.GENADULT ---
HPI - General Adult General Chief complaint: Unspecified Stated complaint: low blood pressure Time Seen by Provider: 07/16/21 16:10 Source: patient, family and RN notes reviewed Mode of arrival: wheelchair Limitations: no limitations History of Present Illness MD complaint: left groin pain, chills, weakness and hypotension Onset (ago): hour(s) (6) Location: pelvis and lower extremity Radiation: back Severity: moderate Severity scale (1-10): 5 Quality: aching, dull and constant Pain Consistency: constant Relieving factors: none Exacerbating factors: movement Associated symptoms: fever/chills Related Data Home Medications Medication Instructions Recorded Confirmed glipizide 10 mg tablet, extended 20 mg PO DAILY 06/17/21 07/16/21 release 24 hr hydrochlorothiazide 25 mg tablet 25 mg PO DAILY 06/17/21 07/16/21 lisinopril 20 mg tablet 20 mg PO DAILY 06/17/21 07/16/21 metformin 1,000 mg tablet 1,000 mg PO BID 06/17/21 07/16/21 pioglitazone 15 mg tablet 7.5 mg PO DAILY 06/17/21 07/16/21 tamoxifen 20 mg tablet 20 mg PO DAILY 06/17/21 07/16/21 Allergies Allergy/AdvReac Type Severity Reaction Status Date / Time No Known Allergies Allergy Verified 07/16/21 16:33 Review of Systems Review of Systems: All systems reviewed & are unremarkable except as noted in HPI and below Constitutional: Constitutional: Reports no additional constitutional complaints Eyes: Eyes: Reports no additional eye complaints ENT: Reports system reviewed and no additional complaints, except as documented Cardiovascular: Cardiovascular: Reports no additional cardiovascular complaints Respiratory: Respiratory: Reports no additional respiratory complaints Gastrointestinal: Gastrointestinal: Reports no additional gastrointestinal complaints Genitourinary: Genitourinary: Reports no additional female genitourinary complaints Musculoskeletal: Musculoskeletal: Reports no additional musculoskeletal complaints Integumentary/Breasts: Skin/Breast: Reports system reviewed and no additional complaints, except as docu Neurologic: Reports system reviewed and no additional complaints, except as documented Psychiatric: Psychiatric: Reports no additional psychiatric complaints Endocrine: Endocrine: Reports no additional endocrine complaints Hematologic/Lymphatic: Hematologic/Lymphatic: Reports no additional hematologic/lymphatic complaints Allergic/Immunologic: Allergic/Immunologic: Reports no additional allergic/immunologic complaints [facility] Past Medical History Medical History (Updated 07/16/21 @ 21:12 by Earlene Fitzpatrick MD) Acute UTI (urinary tract infection) Breast cancer 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 Hypertension Soft tissue abscess of inguinal region Type 2 diabetes mellitus Surgical History Surgical History History of lumpectomy of right breast Exam Const: General: no acute distress and ill appearing Nutritional Appearance: obese Orientation/consciousness: patient oriented x3 Limitations: no limitations HENMT: Head: normal to inspection Ears: external ears normal, TM's normal bilaterally and EAC's normal General nose exam: Normal external nose present and Normal nares present Face and sinus: normal facial exam and sinuses nontender Mouth: Yes Normal oral and palatal mucosa present and Yes moist mucous membranes Teeth and gingiva: dentition normal Throat: posterior oropharynx normal Eyes: Conjunctivae: conjunctivae normal Pupils: Equal, round and reactive pupils present EOM: EOMs intact bilaterally Neck: Neck: normal visual inspection, no lymphadenopathy and no meningeal signs Chest: Chest palpation & inspection: normal inspection of the chest Resp: Effort & Inspection: normal respiratory effort Auscultation: clear to auscultation bilaterally Cardio: Rate: regular rate Rhythm: regular rhythm GI: GI Palp: Yes Soft to palpation and No Tenderness to palpation pre
--- NOTE | 2021-07-16 21:05 | PC.NURSE ---
pt lost IV access, demetrice kam attempted 3x, Edwin Kam attempted 2x, 2nd floor called for attempt
--- NOTE | 2021-07-16 21:09 | PC.NURSE ---
nurse called for update on bed status, still waiting fo assignment
--- NOTE | 2021-07-16 21:28 | PC.NURSE ---
Louise, floor Rn attempted 2x IV access, and was unsuccessful
--- NOTE | 2021-07-16 21:40 | PC.NURSE ---
nasrin from [facility] called with update, bed assigned and being cleaned. they will return call when ready
--- NOTE | 2021-07-16 22:36 | PC.NURSE ---
[facility] called for transfer
--- NOTE | 2021-07-16 22:38 | PC.NURSE ---
[facility] declined transfer
--- NOTE | 2021-07-16 22:39 | PC.NURSE ---
[facility] paged for transfer
== END 2021-07-16 23:03 | disposition short-term general hospital (02) ==
PROVIDERS: Emergency Provider Emergency Medicine; PCP Internal Medicine
DX: L02.214 Cutaneous abscess of groin (principal); N39.0 Urinary tract infection, site not specified; E11.9 Type 2 diabetes mellitus without complications; I10 Essential (primary) hypertension
CPT/HCPCS: 36415; 71045; 74176; 80053; 81001; 83605; 85025; 87040; 93005; 96361; 96365; 96366; 96375; 99285; J0696; J2405; J7030

== ENCOUNTER 2021-11-29 11:39 | Outpatient (CLI) | payer MEDICARE, SELFPAY ==
--- NOTE | ~2021-11-29 | MM_ITS ---
EXAMINATION: MM screening dilan BI w brigitte HISTORY: Screening TECHNIQUE: Craniocaudal and mediolateral oblique 3-D tomosynthesis images were obtained and synthetic 2-D images were generated. CAD analysis was submitted and interpreted. COMPARISON: Comparison to multiple prior studies sequentially, with oldest reviewed study dated 12/12. BREAST PARENCHYMAL COMPOSITION: There are scattered areas of fibroglandular density. FINDINGS: There are benign bilateral breast calcifications. There is possible architectural distortio n in the subareolar location of the right breast, not definitely seen on prior examinations. There is focal nodular asymmetry in the subareolar location of the left breast. IMPRESSION: 1. Bilateral subareolar abnormalities including possible architectural distortion on the right and ma ss on the left. 2. Additional mammographic views and possible breast ultrasound are recommended. BI-RADS Category 0: Incomplete: Needs additional imaging evaluation. Reviewed, dictated and finalized at location A. IMPRESSION: 1. Bilateral subareolar abnormalities including possible architectural distorti on on the right and mass on the left. 2. Additional mammographic views and possible breast ultrasound are recommended . BI-RADS Category 0: Incomplete: Needs additional imaging evaluation.
== END 2021-11-29 11:40 | disposition home or self-care (01) ==
LOC: CHSIMG 11:41
PROVIDERS: PCP Internal Medicine; Visit Provider Internal Medicine Hematology & Oncology
DX: Z12.31 Encounter for screening mammogram for malignant neoplasm of breast (principal)
CPT/HCPCS: 77063; 77067

== ENCOUNTER 2021-12-09 08:42 | Outpatient (CLI) | payer MEDICARE, SELFPAY ==
--- NOTE | ~2021-12-09 | MMUS_ITS ---
EXAMINATION: MM diagnostic dilan BI w brigitte, US breast BI limited HISTORY: History of right breast cancer status post radiation therapy. Bilateral breast asymmetries. TECHNIQUE: Additional 3-D tomosynthesis images of the breasts were performed and synthetic 2-D images were generated. CAD analysis was submitted and interpreted. High resolution limited bilateral breast ultrasound was performed. COMPARISON: Comparison to multiple prior studies sequentially, with oldest reviewed study dated 12/12. BREAST PARENCHYMAL COMPOSITION: The breasts are heterogeneously dense, which may obscure small masses FINDINGS: MAMMOGRAPHIC FINDINGS: No discrete mass is identified in the subareolar location the right breast. There are surgical change s in the upper central right breast. Subtle architectural distortion likely relates to prior radiatio n therapy. Oval mass in the subareolar location of the left breast is persistent. ULTRASOUND: Limited right breast ultrasound: Normal heterogeneous echotexture in the periareolar/subareolar locat ion without discrete mass. Limited left breast ultrasound: There are mildly prominent ducts in the subareolar location of the le ft breast, likely which correspond to the mass seen on mammography. No suspicious masses to suggest m alignancy. IMPRESSION: 1. No evidence for malignancy in either breast. Benign findings. 2. Routine yearly screening mammogram and regular clinical breast examination are recommended. BI-RADS Category 2: Benign finding(s). Reviewed, dictated and finalized at location A. IMPRESSION: 1. No evidence for malignancy in either breast. Benign findings. 2. Routine yearly screening mammogram and regular clinical breast examination a re recommended. BI-RADS Category 2: Benign finding(s).
== END 2021-12-09 08:43 | disposition home or self-care (01) ==
LOC: CHSIMG 08:43
PROVIDERS: PCP Internal Medicine; Visit Provider Internal Medicine Hematology & Oncology
DX: R92.8 Other abnormal and inconclusive findings on diagnostic imaging of breast (principal)
CPT/HCPCS: 76642; 77062; 77066; G0279

== ENCOUNTER 2022-05-30 10:09 | Outpatient (CLI) | payer MEDICARE, SELFPAY ==
--- NOTE | ~2022-05-30 | XR_ITS ---
XR sinus min 3V DATE: 05/30/2022 12:24 INDICATION: Left maxillary pain/pressure for 2 weeks. Chronic sinusitis. TECHNIQUE: jeremy Thibodeaux, submental vertical and lateral views COMPARISON: None FINDINGS: The paranasal sinuses and mastoid air cells appear well-developed and aerated. Leftward bowing of the nasal septum. Normal sella turcica. IMPRESSION: Negative paranasal sinuses and mastoid air cells Reviewed, dictated and finalized at location B.
[2022-05-30 10:26] LABS: Basophils Absolute Auto 0.02 K/mm3 (0.00-0.10); Basophils Percent Auto 0.3 % (0.0-1.0); Eosinophils Absolute Auto 0.08 K/mm3 (0.02-0.50); Eosinophils Percent Auto 1.3 % (1.0-6.0); Hematocrit 40.7 % (35.0-42.0); Hemoglobin 13.3 g/dL (11.7-13.8); Immature Granulocyte Absolute 0.03 K/mm3 (0.00-0.00); Immature Granulocyte Percent A 0.5 % (0.0-0.0); Immature Platelet Fraction Pct 5.1 % (1.0-7.0); Lymphocytes Absolute Auto 0.27 K/mm3 (1.10-4.50); Lymphocytes Percent Auto 4.4 % (18.0-42.0); Mean Corpuscular HGB Conc 32.7 g/dL (32.0-36.0); Mean Corpuscular Hemoglobin 27.9 pg (27.0-31.0); Mean Corpuscular Volume 85.3 fL (78.0-102.0); Mean Platelet Volume 11.2 fl (9.2-11.8); Monocytes Absolute Auto 0.34 K/mm3 (0.10-0.90); Monocytes Percent Auto 5.6 % (2.0-11.0); Neutrophils Absolute Auto 5.4 K/mm3 (1.7-7.2); Neutrophils Percent Auto 87.9 % (50.0-70.0); Platelet Count Result 135 K/mm3 (150-420); Red Blood Count 4.77 M/mm3 (4.20-5.40); Red Cell Distribution Width 12.9 % (11.6-14.4); White Blood Count 6.1 K/mm3 (4.8-10.8)
[2022-05-30 12:27] LABS: Alanine Aminotransferase 19 U/L (14-59); Albumin Level 3.5 g/dL (3.4-5.0); Alkaline Phosphatase 72 U/L (46-116); Anion Gap 8 mmol/L (8-16); Aspartate Amino Transferase 19 U/L (15-37); Bilirubin,Total 2.1 mg/dL (0.00-1.00); Blood Urea Nitrogen 24 mg/dL (7-18); Calcium 9.1 mg/dL (8.5-10.1); Carbon Dioxide 30 mmol/L (21-32); Chloride 104 mmol/L (98-108); Cholesterol 224 mg/dL (0-200); Estimated Glomerular Filt Rate 49; Glucose 195 mg/dL (70-99); HDL Direct 48 mg/dL (40-60); LDL Cholesterol Calculated 143 mg/dL (<130); Osmolality Calculated 303 mOsm/kg (285-295); Potassium 4.3 mmol/L (3.5-5.1); Sodium 142 mmol/L (136-145); Thyroid Stimulating Hormone 1.11 uIU/mL (0.36-3.74); Triglycerides 166 mg/dL (0-150)
[2022-05-30 12:36] LABS: Hemoglobin A1C 8.3 % (<5.7)
[2022-06-04 13:41] LABS: Vitamin D 25 Hydroxy 29 ng/mL (30-100)
== END 2022-05-30 10:10 | disposition home or self-care (01) ==
PROVIDERS: PCP Internal Medicine; Visit Provider Internal Medicine Hematology & Oncology
DX: C50.211 Malignant neoplasm of upper-inner quadrant of right female breast (principal); E55.9 Vitamin D deficiency, unspecified; I10 Essential (primary) hypertension; E11.9 Type 2 diabetes mellitus without complications; R68.84 Jaw pain
CPT/HCPCS: 36415; 70220; 80053; 80061; 82306; 83036; 84443; 85025; 85055

== ENCOUNTER 2022-11-21 10:22 | Outpatient (CLI) | payer MEDICARE, SELFPAY ==
[2022-11-21 10:35] LABS: Basophils Absolute Auto 0.01 K/mm3 (0.00-0.10); Basophils Percent Auto 0.2 % (0.0-1.0); Eosinophils Percent Auto 2.4 % (1.0-6.0); Hemoglobin 12.6 g/dL (11.7-13.8); Immature Granulocyte Absolute 0.01 K/mm3 (0.00-0.00); Immature Granulocyte Percent A 0.2 % (0.0-0.0); Lymphocytes Absolute Auto 1.06 K/mm3 (1.10-4.50); Lymphocytes Percent Auto 25.6 % (18.0-42.0); Mean Corpuscular HGB Conc 33.2 g/dL (32.0-36.0); Mean Corpuscular Hemoglobin 28.7 pg (27.0-31.0); Mean Corpuscular Volume 86.6 fL (78.0-102.0); Mean Platelet Volume 11.6 fl (9.2-11.8); Monocytes Absolute Auto 0.35 K/mm3 (0.10-0.90); Monocytes Percent Auto 8.5 % (2.0-11.0); Neutrophils Absolute Auto 2.6 K/mm3 (1.7-7.2); Neutrophils Percent Auto 63.1 % (50.0-70.0); Platelet Count Result 123 K/mm3 (150-420); Red Blood Count 4.39 M/mm3 (4.20-5.40); Red Cell Distribution Width 12.1 % (11.6-14.4); White Blood Count 4.1 K/mm3 (4.8-10.8)
[2022-11-21 11:10] LABS: Hemoglobin A1C 8.4 % (<5.7)
[2022-11-21 11:22] LABS: Alanine Aminotransferase 13 U/L (14-59); Albumin Level 3.3 g/dL (3.4-5.0); Alkaline Phosphatase 64 U/L (46-116); Anion Gap 9 mmol/L (8-16); Aspartate Amino Transferase 14 U/L (15-37); Bilirubin,Total 1.5 mg/dL (0.00-1.00); Blood Urea Nitrogen 22 mg/dL (7-18); Carbon Dioxide 28 mmol/L (21-32); Chloride 103 mmol/L (98-108); Cholesterol 140 mg/dL (0-200); Estimated Glomerular Filt Rate 46; Glucose 209 mg/dL (70-99); HDL Direct 46 mg/dL (40-60); LDL Cholesterol Calculated 72 mg/dL (<130); Osmolality Calculated 299 mOsm/kg (285-295); Potassium 4.2 mmol/L (3.5-5.1); Sodium 140 mmol/L (136-145); Total Protein 6.4 g/dL (6.4-8.2); Triglycerides 108 mg/dL (0-150)
== END 2022-11-21 10:23 | disposition home or self-care (01) ==
LOC: CHSLAB 10:24
PROVIDERS: PCP Internal Medicine; Visit Provider Internal Medicine
DX: I95.9 Hypotension, unspecified (principal); E78.5 Hyperlipidemia, unspecified; I10 Essential (primary) hypertension; E11.69 Type 2 diabetes mellitus with other specified complication
CPT/HCPCS: 36415; 80053; 80061; 83036; 85025

== ENCOUNTER 2022-12-17 09:30 | Outpatient (CLI) | payer MEDICARE, SELFPAY ==
--- NOTE | ~2022-12-17 | MM_ITS ---
EXAMINATION: MM diagnostic dilan BI w brigitte HISTORY: History of breast cancer TECHNIQUE: Additional 3-D tomosynthesis images of the breasts were performed and synthetic 2-D images were generated. CAD analysis was submitted and interpreted. COMPARISON: Comparison to multiple prior studies sequentially, with oldest reviewed study dated 12/12. BREAST PARENCHYMAL COMPOSITION: Breast composed of scattered areas of fibroglandular density FINDINGS: There are benign bilateral breast calcifications. No new masses, calcifications or architec tural distortion in either breast to suggest malignancy. IMPRESSION: 1. No evidence for malignancy in either breast. 2. Routine yearly screening mammogram and regular clinical breast examination are recommended. BI-RADS Category 2: Benign finding(s). Reviewed, dictated and finalized at location A. OR ANIMAL SITTER IMPRESSION: 1. No evidence for malignancy in either breast. 2. Routine yearly screening mammogram and regular clinical breast examination a re recommended. BI-RADS Category 2: Benign finding(s).
== END 2022-12-17 09:31 | disposition home or self-care (01) ==
LOC: CHSIMG 09:31
PROVIDERS: PCP Internal Medicine; Visit Provider Internal Medicine Hematology & Oncology
DX: C50.211 Malignant neoplasm of upper-inner quadrant of right female breast (principal)
CPT/HCPCS: 77062; 77066; G0279

== ENCOUNTER 2023-01-14 07:39 | Outpatient (CLI) | payer MEDICARE, SELFPAY ==
--- NOTE | ~2023-01-14 | XR_ITS ---
AP view of the pelvis and AP and lateral views of the left hip Clinical history: Pain Findings: No acute fracture or dislocation is seen. Osseous alignment is anatomic. Bilateral hip and SI joint spaces are preserved. Soft tissues are unremarkable. Impression: No significant abnormality is seen. Reviewed, dictated and finalized at [facility]. NGS COUNSELOR Impression: No significant abnormality is seen.
--- NOTE | ~2023-01-14 | US_ITS ---
Abdominal Sonogram: Real-time sonographic imaging of the abdomen was performed. Clinical History: Abdominal pain Findings: The liver appears echogenic, with no evidence of solid mass lesion or bile duct dilatation . Small hepatic cyst noted. Main portal vein demonstrates normal direction of flow. The spleen is nor mal in size without evidence of focal lesion. The gallbladder is well distended, and appears normal with no evidence of gallstone or wall thickening. The common bile duct measures 3 mm. The visualized pancreas, aorta, and IVC are unremarkable. The right kidney measures 8.8 cm in length and the left kidney measures 11.4 cm. There is no hydronephrosis or renal calculus. Impression: Diffuse fatty infiltration of liver. Left kidney measures significantly larger than the right, of uncertain clinical significance. Reviewed, dictated and finalized at [facility]. RT PROGRAMMER Impression: Diffuse fatty infiltration of liver. Left kidney measures significantly larger than the right, of uncertain clinical significance.
[2023-01-14 08:15] LABS: Partial Thromboplastin Time 22.9 SEC (23.90-30.70); Prothrombin Time 10.5 Seconds (9.50-12.10)
[2023-01-14 08:19] LABS: Mean Platelet Volume 11.3 fl (9.2-11.8); Platelet Count Result 145 K/mm3 (150-420)
[2023-01-14 08:22] LABS: D Dimer 1.07 mg/L (0.19-0.50)
[2023-01-14 08:51] LABS: HIV 1 P24 AG Negative (Negative); HIV 1/2 AB Negative (Negative)
[2023-01-18 10:38] LABS: Fibrinogen 288 mg/dL (175-425)
[2023-01-18 12:36] LABS: Hepatitis A Antibody IgM Nonreactive; Hepatitis B Core Antibody Nonreactive (Nonreactive); Hepatitis B Surface Antigen Nonreactive (Nonreactive); Hepatitis C Virus Antibody Nonreactive
== END 2023-01-14 07:40 | disposition home or self-care (01) ==
LOC: CHSIMG 07:40
PROVIDERS: PCP Internal Medicine; Visit Provider Internal Medicine Hematology & Oncology
DX: D69.6 Thrombocytopenia, unspecified (principal); R10.9 Unspecified abdominal pain; K76.0 Fatty (change of) liver, not elsewhere classified; R93.422 Abnormal radiologic findings on diagnostic imaging of left kidney
CPT/HCPCS: 36415; 73502; 76700; 80074; 85049; 85380; 85384; 85610; 85730; 87806

== ENCOUNTER 2023-04-16 09:24 | Outpatient (CLI) | payer MEDICARE, SELFPAY ==
[2023-04-16 09:41] LABS: Hematocrit 38.1 % (35.0-42.0); Hemoglobin 12.8 g/dL (11.7-13.8); Immature Platelet Fraction Pct 5.2 % (1.0-7.0); Mean Corpuscular HGB Conc 33.6 g/dL (32.0-36.0); Mean Corpuscular Hemoglobin 28.4 pg (27.0-31.0); Mean Corpuscular Volume 84.5 fL (78.0-102.0); Mean Platelet Volume 11.4 fl (9.2-11.8); Platelet Count Result 124 K/mm3 (150-420); Red Blood Count 4.51 M/mm3 (4.20-5.40); Red Cell Distribution Width 12.4 % (11.6-14.4)
[2023-04-16 09:48] LABS: Creatinine Urine 176.92 mg/dL (40-278); MALB Creatinine Ratio 14.1 mg/g (0-30)
[2023-04-16 10:20] LABS: Band Neutrophils Percent 0 % (0-6); Eosinophils Absolute Manual 0.08 K/mm3 (0.02-0.5); Eosinophils Percent Manual 2 % (1-6); Lymphocytes Absolute Manual 0.96 K/mm3 (1.1-4.5); Lymphocytes Percent Manual 24 % (18-44); Monocytes Absolute Manual 0.32 K/mm3 (0.1-0.90); Monocytes Percent Manual 8 % (3-9); Neutrophils Absolute Manual 2.64 K/mm3 (1.7-7.2); Neutrophils Percent Manual 66 % (46-73); Platelet Estimate Adequate (Adequate); Total Cells Counted 100
[2023-04-16 10:41] LABS: Alanine Aminotransferase 18 U/L (14-59); Albumin Level 3.3 g/dL (3.4-5.0); Alkaline Phosphatase 53 U/L (46-116); Anion Gap 7 mmol/L (8-16); Aspartate Amino Transferase 15 U/L (15-37); Bilirubin,Total 1.5 mg/dL (0.00-1.00); Blood Urea Nitrogen 21 mg/dL (7-18); Calcium 8.8 mg/dL (8.5-10.1); Carbon Dioxide 32 mmol/L (21-32); Chloride 103 mmol/L (98-108); Cholesterol 138 mg/dL (0-200); Estimated Glomerular Filt Rate 51; Glucose 184 mg/dL (70-99); HDL Direct 53 mg/dL (40-60); LDL Cholesterol Calculated 62 mg/dL (<130); Osmolality Calculated 302 mOsm/kg (285-295); Potassium 4.2 mmol/L (3.5-5.1); Sodium 142 mmol/L (136-145); Thyroid Stimulating Hormone 1.24 uIU/mL (0.36-3.74); Total Protein 6.4 g/dL (6.4-8.2); Triglycerides 115 mg/dL (0-150)
== END 2023-04-16 09:25 | disposition home or self-care (01) ==
PROVIDERS: PCP Internal Medicine; Visit Provider Internal Medicine Hematology & Oncology
DX: C50.211 Malignant neoplasm of upper-inner quadrant of right female breast (principal); D69.6 Thrombocytopenia, unspecified; E11.9 Type 2 diabetes mellitus without complications; E78.5 Hyperlipidemia, unspecified
CPT/HCPCS: 36415; 80053; 80061; 82043; 83036; 84443; 85025; 85055

== ENCOUNTER 2023-07-31 10:15 | Outpatient (CLI) | payer MEDICARE, SELFPAY ==
[2023-07-31 10:54] LABS: Basophils Absolute Auto 0.01 K/mm3 (0.00-0.10); Basophils Percent Auto 0.2 % (0.0-1.0); Eosinophils Absolute Auto 0.08 K/mm3 (0.02-0.50); Eosinophils Percent Auto 1.7 % (1.0-6.0); Hematocrit 38.6 % (35.0-42.0); Immature Granulocyte Absolute 0.02 K/mm3 (0.00-0.00); Immature Granulocyte Percent A 0.4 % (0.0-0.0); Lymphocytes Percent Auto 30.2 % (18.0-42.0); Mean Corpuscular HGB Conc 33.7 g/dL (32-36); Mean Corpuscular Hemoglobin 28.8 pg (27.0-31.0); Mean Corpuscular Volume 85.6 fL (78.0-102.0); Mean Platelet Volume 11.4 fl (9.2-11.8); Monocytes Percent Auto 8.6 % (2.0-11.0); Neutrophils Absolute Auto 2.73 K/mm3 (1.70-7.20); Neutrophils Percent Auto 58.9 % (50.0-70.0); Platelet Count Result 144 K/mm3 (150-420); Red Blood Count 4.51 M/mm3 (4.20-5.40); Red Cell Distribution Width 12.4 % (11.6-14.4); White Blood Count 4.6 K/mm3 (4.8-10.8)
[2023-07-31 11:05] LABS: Creatinine Urine 62.51 mg/dL (40-278); MALB Creatinine Ratio 20.7 mg/g (0-30); Microalbumin Urine Random < 13.0 mg/L
[2023-07-31 11:12] LABS: Alanine Aminotransferase 17 U/L (14-59); Albumin Level 3.3 g/dL (3.4-5.0); Alkaline Phosphatase 53 U/L (46-116); Anion Gap 6 mmol/L (4-12); Aspartate Amino Transferase 18 U/L (15-37); Bilirubin,Total 1.4 mg/dL (0.00-1.00); Blood Urea Nitrogen 18 mg/dL (7-18); Calcium 9.1 mg/dL (8.5-10.1); Carbon Dioxide 30 mmol/L (21-32); Chloride 106 mmol/L (98-108); Estimated Glomerular Filt Rate 53; Glucose 78 mg/dL (70-99); Osmolality Calculated 294 mOsm/kg (285-295); Potassium 3.8 mmol/L (3.5-5.1); Sodium 142 mmol/L (136-145); Total Protein 6.6 g/dL (6.4-8.2)
== END 2023-07-31 10:16 | disposition home or self-care (01) ==
LOC: CHSLAB 10:20
PROVIDERS: PCP Internal Medicine
DX: C50.211 Malignant neoplasm of upper-inner quadrant of right female breast (principal); E11.9 Type 2 diabetes mellitus without complications; L82.1 Other seborrheic keratosis
CPT/HCPCS: 36415; 80053; 82043; 85025; 88305

== ENCOUNTER 2023-09-11 13:55 | Outpatient (CLI) | payer MEDICARE, SELFPAY ==
[2023-09-18 17:45] LABS: Reference Lab Test Name tamoxifen
== END 2023-09-11 13:56 | disposition home or self-care (01) ==
LOC: CHSLAB 14:01
PROVIDERS: PCP Internal Medicine; Visit Provider Internal Medicine Hematology & Oncology
DX: C50.211 Malignant neoplasm of upper-inner quadrant of right female breast (principal)
CPT/HCPCS: 36415; 80299

== ENCOUNTER 2023-12-28 08:12 | Outpatient (CLI) | payer MEDICARE, SELFPAY ==
--- NOTE | ~2023-12-28 | MMUS_ITS ---
EXAMINATION: MM diagnostic dilan BI w brigitte, US breast LT limited HISTORY: Left breast lump TECHNIQUE: 3-D tomosynthesis images of the breasts were performed and synthetic 2-D images were gener ated. CAD analysis was submitted and interpreted. High resolution limited left breast ultrasound was performed. COMPARISON: 12/17/2022, 12/09/2021, 11/06/2020, 10/26/2020 BREAST PARENCHYMAL COMPOSITION:Not Dense. There are scattered areas of fibroglandular density. FINDINGS: MAMMOGRAPHIC FINDINGS: Parenchymal pattern of the breasts is unchanged. No suspicious mass lesion or distortion seen. Bilate ral benign calcifications are present. No suspicious microcalcifications evident. ULTRASOUND: Sonographic imaging performed of the left breast 2:00 position, 15 cm from the nipple, and at the lef t breast 3:00 position, 8 cm from the nipple. No sonographic abnormalities seen in these regions. No solid lesion or cyst evident. IMPRESSION: No mammographic evidence for malignancy. Stable mammographic examination. No mammographic or sonographic correlate seen at the areas of palpable concern in the left breast. BI-RADS Category 2: Benign finding(s). Reviewed, dictated and finalized at [facility]. UCTION LEADER IMPRESSION: No mammographic evidence for malignancy. Stable mammographic examination. No mammographic or sonographic correlate seen at the areas of palpable concern in the left breast. BI-RADS Category 2: Benign finding(s).
[2023-12-28 09:23] LABS: Basophils Absolute Auto 0.02 K/mm3 (0.00-0.10); Basophils Percent Auto 0.5 % (0.0-1.0); Eosinophils Percent Auto 2.4 % (1.0-6.0); Hematocrit 37.5 % (35.0-42.0); Hemoglobin 12.6 g/dL (11.7-13.8); Immature Granulocyte Absolute 0.01 K/mm3 (0.00-0.00); Immature Granulocyte Percent A 0.2 % (0.0-0.0); Lymphocytes Absolute Auto 1.01 K/mm3 (1.10-4.50); Lymphocytes Percent Auto 24.5 % (18.0-42.0); Mean Corpuscular HGB Conc 33.6 g/dL (32-36); Mean Corpuscular Hemoglobin 28.5 pg (27.0-31.0); Mean Corpuscular Volume 84.8 fL (78.0-102.0); Mean Platelet Volume 11.6 fl (9.2-11.8); Monocytes Absolute Auto 0.42 K/mm3 (0.10-0.90); Monocytes Percent Auto 10.2 % (2.0-11.0); Neutrophils Absolute Auto 2.56 K/mm3 (1.70-7.20); Neutrophils Percent Auto 62.2 % (50.0-70.0); Platelet Count Result 144 K/mm3 (150-420); Red Blood Count 4.42 M/mm3 (4.20-5.40); Red Cell Distribution Width 12.4 % (11.6-14.4); White Blood Count 4.1 K/mm3 (4.8-10.8)
[2023-12-28 09:29] LABS: MALB Creatinine Ratio 12.5 mg/g (0-30); Microalbumin Urine Random 19.4 mg/L
[2023-12-28 10:10] LABS: Alanine Aminotransferase 14 U/L (14-59); Albumin Level 3.4 g/dL (3.4-5.0); Alkaline Phosphatase 71 U/L (46-116); Anion Gap 8 mmol/L (4-12); Aspartate Amino Transferase 13 U/L (15-37); Bilirubin,Total 1.3 mg/dL (0.00-1.00); Blood Urea Nitrogen 22 mg/dL (7-18); Calcium 8.9 mg/dL (8.5-10.1); Carbon Dioxide 31 mmol/L (21-32); Chloride 104 mmol/L (98-108); Cholesterol 149 mg/dL (0-200); Estimated Glomerular Filt Rate 47; Glucose 186 mg/dL (70-99); HDL Direct 60 mg/dL (40-60); LDL Cholesterol Calculated 70 mg/dL (<130); Osmolality Calculated 304 mOsm/kg (285-295); Potassium 3.9 mmol/L (3.5-5.1); Sodium 143 mmol/L (136-145); Thyroid Stimulating Hormone 1.11 uIU/mL (0.36-3.74); Total Protein 6.4 g/dL (6.4-8.2); Triglycerides 93 mg/dL (0-150)
== END 2023-12-28 08:13 | disposition home or self-care (01) ==
PROVIDERS: PCP Internal Medicine; Visit Provider Internal Medicine Hematology & Oncology
DX: C50.211 Malignant neoplasm of upper-inner quadrant of right female breast (principal); E78.5 Hyperlipidemia, unspecified; E11.69 Type 2 diabetes mellitus with other specified complication; I10 Essential (primary) hypertension
CPT/HCPCS: 36415; 76642; 77062; 77066; 80053; 80061; 82043; 83036; 84443; 85025; G0279

== ENCOUNTER 2024-04-14 13:44 | Outpatient (CLI) | payer MEDICARE, SELFPAY ==
[2024-04-14 14:01] LABS: Hematocrit 39.5 % (35.0-42.0); Hemoglobin 12.7 g/dL (11.7-13.8); Mean Corpuscular HGB Conc 32.2 g/dL (32-36); Mean Corpuscular Hemoglobin 27.7 pg (27.0-31.0); Mean Corpuscular Volume 86.2 fL (78.0-102.0); Mean Platelet Volume 11.4 fl (9.2-11.8); Platelet Count Result 180 K/mm3 (150-420); Red Blood Count 4.58 M/mm3 (4.20-5.40); Red Cell Distribution Width 12.7 % (11.6-14.4); White Blood Count 5.3 K/mm3 (4.8-10.8)
[2024-04-14 14:17] LABS: Creatinine Urine 39.37 mg/dL (40-278)
[2024-04-14 14:29] LABS: Hemoglobin A1C 7.4 % (<5.7)
[2024-04-14 14:32] LABS: Microalbumin Urine Random < 13.0 mg/L
--- OUTSIDE RECORDS SUMMARY | 2024-04-14 15:08 | XMS_ITS | Encounter Summary ---
Author Organization [facility] Address [address] [place] [id number] Care Team Providers Care Base Wad Operator Adjuster Name Role Phone Keegan Farnsworth MD Primary Care Provider [phone] Encounter Details Date Type Department Care Team (Late st Contact Info) Description 09/23/2022 Lessonwriter Message [facility] [address] [place] [address] [place] [address] [place], [facility] Provider RE: Patient Amendment Request Social History Tobacco Use Types Packs/Day Years Used Date Smoking Tobacco: Never Smokeless Tobacco: Never Alcohol Use Standard Drinks/Week Comments Yes 0 (1 standard drink = 0.6 oz pur e alcohol) very rarely Comments No Sex and Gender Information Value Date Recorded Sex Assigned at Not on file Legal Sex Female 9:52 PM ACID DUMPER Gender Identity Not on file Sexual Orientation Not on file documented as of this encounter Functional Status * RETIRED Are you deaf or do you have serious difficulty hearing Answer Date of Assessment Author Status No 07/17/2021 1:41 AM CDT Activ e * RETIRED Are you blind or do you have serious difficulty seeing, even when wearing glasses? Answer Date of Assessment Author Status No 07/17/2021 1:41 AM CDT Activ e * Do you have serious difficulty walking or climbing stairs? Answer Date of Assessment Author Status No 07/17/2021 1:41 AM ROULAT Suha Garibay RN Active * Do you have difficulty dressing or bathing? Answer Date of Assessment Author Status No 07/17/2021 1:41 AM ROULAT Suha Garibay RN Active * Because of a physical, mental, or emotional condition, do you have difficulty doing errands alone such as visiting a doctor's office or shopping? Answer Date of Assessment Author Status No 07/17/2021 1:41 AM Suha Fulton RN Active documented as of this encounter Mental Status * Because of a physical, mental, or emotional condition, do you have serious difficulty concentrating, remembering, or making decisions? Answer Entry Date Author Status No 07/17/2021 1:41 AM Suha Fulton RN Active documented in this encounter Plan of Treatment Not on file documented as of this encounter Visit Diagnoses Not on filedocumented in this encounter Care Teams Base Wad Operator Adjuster Relationship Specialty Start Date End Date Keegan Farnsworth MD PCP - General INTERNAL MEDICINE 07/05/21 documented as of this encounter
--- OUTSIDE RECORDS SUMMARY | 2024-04-14 15:08 | XMS_ITS | Clinical Summary ---
Author Organization [facility] Address [address] [place] [address] Care Team Providers Care Sander Wooden Pencils Name Role Phone Keegan Farnsworth MD Primary Care Provider [phone] Allergies No known active allergies Medications tamoxifen (NOLVADEX) 20 MG tabletIndicatio ns:breast cancer Take 1 tablet by mouth daily. 2 Active insulin glargine 100 UNIT/ML injection (PEN) [The details of the medication are not available because there are pending changes by a home health clinician.] 1 pen 1 2 Active Additional Information Patient taking differently: 15 units in AM and 10 units at HS, Indications: diabetes, Reported on 09/09/2022 hydroCHLOROthia zide 25 MG tablet Take 0.5 tablets (12.5 mg total) by mouth every morning. 30 tablet 2 2 Active Lancets (ONETOUCH DELICA PLUS PACBLG40B) Misc 2 (two) times daily. Check blood sugars 2 Active BD PEN NEEDLE ESTEFANÍA 2ND GEN 32G X 4 MM Misc 5 (five) times daily. 2 Active ONETOUCH ULTRA test strip USE TO CHECK BLOOD SUGAR TWICE DAILY 2 Active insulin lispro, 1 Unit Dial, (HUMALOG) 100 UNIT/ML injection (PEN) Inject into the skin 3 (three) times daily. 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 Family History Medical History Relation Comments Cancer Father multiple myeloma Cancer Mother breast Diabetes Mother Heart Disease Mother Hyperlipidemia Mother Relation Status Comments Father Mother Alive Social History Tobacco Use Types Packs/Day Years Used Date Smoking Tobacco: Never Smokeless Tobacco: Never Alcohol Use Standard Drinks/Week Comments Yes 0 (1 standard drink = 0.6 oz pur e alcohol) very rarely Comments No Sex and Gender Information Value Date Recorded Sex Assigned at Not on file 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 Gender Identity Not on file Sexual Orientation Not on file Last Filed Vital Signs Vital Sign Reading Time Taken Comments Blood Pressure 152/68 09/09/2022 12:32 PM CDT Pulse 55 09/09/2022 12:32 PM CDT Temperature 36.6 C (97.8 F) 09/09/2022 12:32 PM CDT Respiratory Rate 16 09/09/2022 12:32 PM CDT Oxygen Saturation 100% 09/09/2022 12:32 PM CDT Inhaled Oxygen Concentration - - Weight 113.4 kg (250 lb) 09/02/2022 1:07 PM CDT Height 168.9 cm (5' 6.5 ) 09/02/2022 1:07 PM CDT Body Mass Index 39.75 09/02/2022 1:07 PM CDT Plan of Treatment Health Maintenance Due Date Last Done Comments Hepatitis C 12/06/1969 Zoster Vaccines (1 of 2) 12/06/2001 Annual Medicare Wellness Visit 12/06/2016 Dexa Scan (General) 12/06/2016 Pneumococcal Vaccine: 65+ Years (1 of 1 - PCV) 12/06/2016 Mammogram Screening 01/10/2023 01/10/2021 COVID-19 Vaccine ( - 2023-2 5 season) 2023 Influenza Adult (#1) 2023 RSV Immunization or 60+ Years (1 - 1-dose 75+ series) 12/06/2026 DTaP, Tdap and Td Vaccines ( 3 - Td or Tdap) 02/09/2029 02/09/2019, 01/13/2019 Colorectal Cancer Screening Colonoscopy (10 Years) 09/09/2032 09/09/2022, 09/09/2022 Meningococcal B Vaccine Aged Out No l onger eligible based on patient's age to complete this topic Meningococcal Vaccine Aged Out No abram andrea eligible based on patient's age to complete this topic RSV Immunizations Under 20 Months Aged Out No longer eligible b ased on patient's age to complete this topic Procedures Procedure Name Priority Date/Time Associated Diagnosis Comments COLONOSCOPY 09/09/2022 6:45 AM CDT MG POST PROC RT DIAG MAMMO Routine 01/10/2021 10:59 AM LAMINATION INSPECTOR Breast cancer, right breast ([facility]) from Last 3 Months or Most Recently Relevant to Health Maintenance Results * Colonoscopy (09/09/2022 6:45 AM CDT) Leonard Rocha MD GI PROCEDURE ORDERABLES Final Result * MG POST PROC RT DIAG MAMMO (01/10/2021 10:59 AM LAMINATION INSPECTOR) Anatomical Region Laterality Modality Breast Right Mammography 01/10/2021 11:0 3 AM LAMINATION INSPECTOR Impressions 01/10/2021 11:08 AM LAMINATION INSPECTOR IMPRESSION: Successful preoperative RF tag localization of right 1:00 biopsy-proven residual malignant nodule and associated ribbon biopsy clip. Patient's surgery is scheduled for 01/14/[address] Starr.. BI-RADS 6 - KNOWN BIOPSY-PROVEN MALIGNANCY. APPROPRIATE ACTIONS SHOULD BE TAKEN. Ordered By: SHAMIKA STARR Interpreted By: Becky Henson MD, 01/10/2021 11:03 AM Narrative 01/10/2021 11:08 AM LAMINATION INSPECTOR EXAM: RIGHT BREAST ULTRASOUND PREOPERATIVE RF TAG LOCALIZATION INDICATION: Preoperative localization biopsy proven right breast malignancy. PROCEDURE: The procedure, risks, and benefits, were explained to the patient. Written informed consent obtained. Preprocedure timeout performed using 2 patient identifiers. The patient confirmed the side and type of procedure. After patient was placed in supine position on ultrasound procedural bed. Maximal sterile barrier technique was utilized for the entire procedure including handwashing with conventional soap-water and/or alcohol based hand video specialist. Using standard aseptic technique and 1% lidocaine with bicarbonate for local anesthesia the residual malignant biopsy-proven nodule at 1:00 was sonographically visualized however associated biopsy clip was not discretely visualized sonographically. The residual then was localized with Hologic LOCalizer radiofrequency tag 5 cm needle was placed with subsequent deployment of RF tag in satisfactory position. After deployment of RF tag interestingly this also could not be discretely visualized sonographically either. RF seed with tag # [id number] . POSTPROCEDURE MAMMOGRAM: Digital mammogram performed in a separate work room with the patient in upright position demonstrates confirms the RF tag abutting the residual malignant nodule with adjacent ribbon biopsy clip noted with all 3 marked with arrows. The postprocedure mammogram images were annotated for the surgeon's review. Procedure Note Becky Henson MD - 01/10/2021 EXAM: RIGHT BREAST ULTRASOUND PREOPERATIVE RF TAG LOCALIZATION INDICATION: Preoperative localization biopsy proven right breastmalignancy. PROCEDURE: The procedure, risks, and benefits, were explained to thepatient. Written informed consent obtained. Preprocedure timeout performedusing 2 patient identifiers. The patient confirmed the side and type ofprocedure. After patient was placed in supine position on ultrasound procedural bed.Maximal sterile barrier technique was utilized for the entire procedureincluding handwashing with conventional soap-water and/or alcohol basedhand video specialist. Using standard aseptic technique and 1% lidocaine withbicarbonate for local anesthesia the residual malignant biopsy-provennodule at 1:00 was sonographically visualized however associated biopsyclip was not discretely visualized sonographically. The residual then waslocalized with Hologic LOCalizer radiofrequency tag 5 cm needle was placedwith subsequent deployment of RF tag in satisfactory position. Afterdeployment of RF tag interestingly this also could not be discretelyvisualized sonographically either. RF seed with tag # [id number] . POSTPROCEDURE MAMMOGRAM: Digital mammogram performed in a separate workroom with the patient in upright position demonstrates confirms the RF tagabutting the residual malignant nodule with adjacent ribbon biopsy clipnoted with all 3 marked with arrows. The postprocedure mammogram imageswere annotated for the surgeon's review. IMPRESSION: Successful preoperative RF tag localization of right 1:00 biopsy-provenresidual malignant nodule and associated ribbon biopsy clip. Patient's surgery is scheduled for 01/14/[address] Starr.. BI-RADS 6 - KNOWN BIOPSY-PROVEN MALIGNANCY. APPROPRIATE ACTIONS SHOULD BE TAKEN. Ordered By: SHAMIKA STARR Interpreted By: Becky Henson MD, 01/10/2021 11:03 AM Shamika Starr MD MAMMO Final Resul t from Last 3 Months or Most Recently Relevant to Health Maintenance Insurance MEDICARE Advance Directives * Full Code (Latest Code Status on File) Date Activated Date Inactivated Comments 09/08/2021 5:02 PM 09/09/2022 10:16 AM * Full Code Date Activated Date Inactivated Comments 07/23/2021 5:09 PM 07/31/2021 2:27 PM * Full Code Date Activated Date Inactivated Comments 07/17/2021 2:08 AM 07/19/2021 5:10 PM * Full Code Date Activated Date Inactivated Comments 07/14/2021 5:55 PM 07/17/2021 12:10 AM * Full Code Date Activated Date Inactivated Comments 06/20/2021 8:42 PM 07/11/2021 7:23 PM Care Teams Sander Wooden Pencils Relationship Specialty Start Date End Date Keegan Farnsworth MD PCP - General INTERNAL MEDICINE 07/05/21
--- OUTSIDE RECORDS SUMMARY | 2024-04-14 15:08 | XMS_ITS | Encounter Summary ---
Author Organization [facility] Address [address] [place] [id number] Care Team Providers Care Fence Builder Name Role Phone Noemi Alarcon MD Primary Care Provider [phone] None, Provider Primary Care Provider Keegan Padgett MD Primary Care Provider [phone] Encounter Details Date Type Department Care Team (Late st Contact Info) Description 06/04/2021 Hispanic Media Message [employer] [address] [place] [id number] [facility] Social History Tobacco Use Types Packs/Day Years Used Date Smoking Tobacco: Never Smokeless Tobacco: Never Alcohol Use Standard Drinks/Week Comments Yes 0 (1 standard drink = 0.6 oz pur e alcohol) very rarely Comments Unknown Sex and Gender Information Value Date Recorded Sex Assigned at Not on file 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
[2024-04-14 15:53] LABS: Alanine Aminotransferase 14 U/L (14-59); Albumin Level 3.7 g/dL (3.4-5.0); Alkaline Phosphatase 83 U/L (46-116); Anion Gap 8 mmol/L (4-12); Aspartate Amino Transferase 15 U/L (15-37); Bilirubin,Total 1.3 mg/dL (0.00-1.00); Blood Urea Nitrogen 23 mg/dL (7-18); Calcium 9.3 mg/dL (8.5-10.1); Carbon Dioxide 30 mmol/L (21-32); Chloride 101 mmol/L (98-108); Cholesterol 182 mg/dL (0-200); Estimated Glomerular Filt Rate 48; Glucose 242 mg/dL (70-99); HDL Direct 51 mg/dL (40-60); LDL Cholesterol Calculated 74 mg/dL (<130); Osmolality Calculated 299 mOsm/kg (285-295); Potassium 3.9 mmol/L (3.5-5.1); Sodium 139 mmol/L (136-145); Total Protein 7.1 g/dL (6.4-8.2); Triglycerides 283 mg/dL (0-150)
== END 2024-04-14 13:45 | disposition home or self-care (01) ==
LOC: CHSLAB 13:49
PROVIDERS: PCP Internal Medicine; Visit Provider Internal Medicine
DX: E11.69 Type 2 diabetes mellitus with other specified complication (principal); E78.5 Hyperlipidemia, unspecified; I10 Essential (primary) hypertension
CPT/HCPCS: 36415; 80053; 80061; 82043; 83036; 84443; 85027

== ENCOUNTER 2024-10-17 10:59 | Outpatient (CLI) | payer MEDICARE, SELFPAY ==
--- NOTE | ~2024-10-17 | XR_ITS ---
EXAM/ PROCEDURE: XR hip LT min 2V - 10/17/2024 11:16 CDT HISTORY: 73 years old Female with LEFT HIP PAIN COMPARISON: None available TECHNIQUE: Two view(s) FINDINGS/ IMPRESSION: There are no fractures or dislocations.Joint space narrowing, subchondral sclerosis, subchondral cyst formation and osteophyte formation, compatible with mild to moderate osteoarthritis. Reviewed, dictated and finalized at location N.
[2024-10-17 11:46] LABS: Add Urine Microscopic? NO; Appearance Urine Clear (Clear); Glucose Urine UA Negative (Negative); Leukocyte Esterase Ur Negative (Negative); Nitrate Urine Negative (Negative); Specific Grav Ur <= 1.005 (1.010-1.020)
[2024-10-17 11:48] LABS: Hematocrit 39.5 % (35.0-42.0); Hemoglobin 12.7 g/dL (11.7-13.8); Immature Granulocyte Percent A 0.2 % (0.0-0.0); Lymphocytes Absolute Auto 1.55 K/mm3 (1.10-4.50); Mean Corpuscular HGB Conc 32.2 g/dL (32-36); Mean Corpuscular Hemoglobin 28.2 pg (27.0-31.0); Mean Corpuscular Volume 87.8 fL (78.0-102.0); Nucleated Red Blood Cells Absolute Auto 0.00 K/mm3 (0.00-0.00); Nucleated Red Blood Cells Perc 0.0 % (0-0.0); Platelet Count Result 146 K/mm3 (150-420); Red Blood Count 4.50 M/mm3 (4.20-5.40); White Blood Count 4.5 K/mm3 (4.8-10.8)
[2024-10-17 12:36] LABS: Hemoglobin A1C 7.0 % (<5.7)
[2024-10-17 12:48] LABS: Alanine Aminotransferase 13 U/L (6-35); Albumin Level 4.0 g/dL (3.5-5.1); Alkaline Phosphatase 55 U/L (38-126); Anion Gap 8 mmol/L (4-12); Aspartate Amino Transferase 28 U/L (14-36); Bilirubin,Total 1.5 mg/dL (0.2-1.3); Blood Urea Nitrogen 21 mg/dL (7-17); Calcium 9.7 mg/dL (8.4-10.2); Carbon Dioxide 31 mmol/L (22-30); Chloride 104 mmol/L (98-107); Cholesterol 166 mg/dL (0-200); Estimated Glomerular Filt Rate 52; Glucose 71 mg/dL (65-110); HDL Direct 49 mg/dL; Osmolality Calculated 297 mOsm/kg (285-295); Potassium 4.0 mmol/L (3.4-5.0); Sodium 143 mmol/L (137-145); Total Protein 6.9 g/dL (6.3-8.2); Triglycerides 184 mg/dL (<150)
== END 2024-10-17 11:00 | disposition home or self-care (01) ==
LOC: CHSIMG 11:05
PROVIDERS: PCP Internal Medicine; Visit Provider Internal Medicine Hematology & Oncology
DX: M25.552 Pain in left hip (principal); C50.211 Malignant neoplasm of upper-inner quadrant of right female breast; E55.9 Vitamin D deficiency, unspecified; M16.12 Unilateral primary osteoarthritis, left hip
CPT/HCPCS: 36415; 73502; 80053; 80061; 81003; 82306; 83036; 85025

== ENCOUNTER 2024-12-29 08:39 | Outpatient (CLI) | payer MEDICARE, SELFPAY ==
--- NOTE | ~2024-12-29 | MM_ITS ---
EXAMINATION: MM diagnostic dilan BI w brigitte INDICATION: Asymptomatic, referred for screening mammogram. History of Right partial mastectomy 2020. COMPARISON: 12/28/2023 through 01/08/2017 TECHNIQUE: Digital Breast Tomosynthesis CC, MLO views were obtained of Both breasts with computer-aided detection to assist in interpretation of the study. FINDINGS: There are scattered areas of fibroglandular density. Posttreatment changes in Right breast are stable. No new focal dominant mass, architectural distortion, or suspicious microcalcifications are identified. Benign calcifications diffusely scattered in both breasts. There are no features to suggest malignancy. IMPRESSION: Stable benign mammogram. No evidence of malignancy in the breast. Recommend annual screening mammography in 12 months. BI-RADS 2, BENIGN Reviewed, dictated and finalized at location B. FACILITATOR
== END 2024-12-29 08:40 | disposition home or self-care (01) ==
LOC: CHSIMG 08:42
PROVIDERS: PCP Internal Medicine; Visit Provider Internal Medicine Hematology & Oncology
DX: C50.211 Malignant neoplasm of upper-inner quadrant of right female breast (principal)
CPT/HCPCS: 77062; 77066; G0279